=== PATIENT | female | born 1985 | race Two or more races ===

== ENCOUNTER 2018-12-19 10:26 | Emergency (ER) | payer OTHER ==
[~2018-12-19] VITALS: Ht 157.5 cm; Wt 113.4 kg
[2018-12-19] MEDS ORDERED: SYNTHROID75 MCG (10:50)
[2018-12-19] MEDS ORDERED: PRENATABS RX T1 EACH (10:50)
== END 2018-12-19 12:57 | disposition home or self-care (01) ==
LOC: ER 10:26
DX: O98.512 Other viral diseases complicating pregnancy, second trimester (principal); B34.9 Viral infection, unspecified; Z34.02 Encounter for supervision of normal first pregnancy, second trimester

== ENCOUNTER 2019-01-12 21:14 | Inpatient (IN) | payer OTHER ==
[~2019-01-12] VITALS: Ht 157.5 cm; Wt 111.1 kg
[~2019-01-12 21:14] MED LIST: PRENATABS RX T1 EACH; SYNTHROID75 MCG
--- NOTE | 2019-01-12 21:23 | NUR ---
SE RECIBE PTE ALERTA Y ORIENTADA X3, PTE REFIERE VENIR POR TOS CON SECRECIONES, SE AUSCULTA A PTE LA CUAL SE ESCUCHA CON WHEEZING.
--- NOTE | 2019-01-13 08:01 | NUR ---
PTE CON ORDEN DE ADMISION A DELIVERY ROOM DE DR GUERRERO. AL MOMENTO DE REALIZARLE [facility] Y [facility]ISTR[facility] PTE NO SE ENCUENTRA EN LA CAMA. PTE FUE LLEVADA A LISA DE PARTOS, SE LLAMA A MS ALEXANDER Y SE NOTIFICA QUIEN INDICA LE TRABAJARAN LA ADMISION YA QUE PTE SE ENCUENTRA CONECTADA CON LAS CORREAS.
== END 2019-01-19 13:27 | disposition home or self-care (01) | DRG 832 ==
LOC: ER 21:14 → LDR 01-13 07:25 → OB/GYN 01-13 18:52
PROVIDERS: ADMIT Obstetrics & Gynecology
PROC: 4A033R1 Measurement of Arterial Saturation, Peripheral, Percutaneous Approach (ICD-10-PCS; principal; 2019-01-13)
PROC: 3E0F7GC Introduction of Other Therapeutic Substance into Respiratory Tract, Via Natural or Artificial Opening (ICD-10-PCS; 2019-01-13)
PROC: 4A1HXCZ Monitoring of Products of Conception, Cardiac Rate, External Approach (ICD-10-PCS; 2019-01-13)
DX: O26.892 Other specified pregnancy related conditions, second trimester (principal); J45.31 Mild persistent asthma with (acute) exacerbation; Z34.02 Encounter for supervision of normal first pregnancy, second trimester

== ENCOUNTER 2019-02-20 22:21 | Inpatient (IN) | payer OTHER ==
[~2019-02-20] VITALS: Ht 157.5 cm; Wt 116.1 kg
[2019-02-24] MEDS ORDERED: SYNTHROID100 MCG PO (09:30)
== END 2019-02-23 14:05 | DRG 833 ==
LOC: LDR 22:21 → OB/GYN 22:21
PROVIDERS: ADMIT Obstetrics & Gynecology
PROC: 4A1HXFZ Monitoring of Products of Conception, Cardiac Rhythm, External Approach (ICD-10-PCS; principal; 2019-02-20)
PROC: BY4FZZZ Ultrasonography of Third Trimester, Single Fetus (ICD-10-PCS; 2019-02-20)
DX: O40.3XX0 Polyhydramnios, third trimester, not applicable or unspecified (principal); Z34.03 Encounter for supervision of normal first pregnancy, third trimester

== ENCOUNTER 2019-02-24 04:14 | Inpatient (IN) | payer OTHER ==
[~2019-02-24] VITALS: Ht 157.5 cm; Wt 0.9 kg
[2019-02-24] MEDS ORDERED: SYNTHROID100 MCG PO (09:30)
== END 2019-02-28 13:51 | disposition home or self-care (01) | DRG 786 ==
LOC: OB/GYN 04:14 → LDR 04:14 → OB/GYN 02-26 10:51
PROVIDERS: ADMIT Obstetrics & Gynecology
PROC: 4A0HXFZ Measurement of Products of Conception, Cardiac Rhythm, External Approach (ICD-10-PCS; 2019-02-25)
PROC: 10D00Z1 Extraction of Products of Conception, Low, Open Approach (ICD-10-PCS; principal; 2019-02-25 07:00)
DX: O82 Encounter for cesarean delivery without indication (principal); O60.14X0 Preterm labor third trimester with preterm delivery third trimester, not applicable or unspecified; O41.1230 Chorioamnionitis, third trimester, not applicable or unspecified; Z3A.29 29 weeks gestation of pregnancy; Z37.0 Single live birth

== ENCOUNTER 2024-07-13 07:00 | Inpatient (IN) | payer OTHER ==
[~2024-07-13 07:00] MED LIST changes: +SYNTHROID100 MCG PO
[2024-07-13 08:34] LABS: HEMATOCRIT 30.3 % (36.0-45.00); HEMOGLOBIN 9.4 g/dL (12.0-15.00); MEAN CORPUSCULAR HEMOGLOBIN 21.2 pg (27.00-32.0); MEAN CORPUSCULAR HGB CONC 30.9 g/dl (32.0-36.0); PLATELET COUNT 526 K/uL (150-450); RED BLOOD COUNT 4.41 M/uL (4.00-6.00)
[2024-07-13 08:36] LABS: MEAN CELL VOLUME 68.8 fL (80.00-100.00); RED CELL DISTRIBUTION WIDTH 19.2 % (11.5-14.5)
[2024-07-13 08:44] LABS: URINE APPEARANCE Clear; URINE BILIRRUBIN Negative (NEGATIVE); URINE BLOOD Negative; URINE COLOR Yellow; URINE GLUCOSE Negative (NEGATIVE); URINE KETONE Trace (NEGATIVE); URINE LEUKOCYTE Negative; URINE NITRATE Negative; URINE PROTEIN Negative (NEGATIVE); URINE UROBILINOGEN 0.2 E.U./dl
[2024-07-13 08:45] LABS: URINE BACTERIA 391.8 uL (0.0-1933); URINE RBC 7.3 uL (0.0-20.8); URINE WBC 26.8 uL (0.0-23.2)
[2024-07-13 08:58] LABS: INR 1.07; PARTIAL THROMBOPLASTIN TIME 24.9 SECONDS (22.0-34.0); PROTHROMBIN TIME 11.6 SECONDS (9.0-11.5)
[2024-07-13 09:07] LABS: ALBUMIN 3.6 gm/dL (3.4-5.0); BILIRUBIN TOTAL 0.45 mg/dL (0.3-1.2); CALCIUM 9.2 mg/dL (8.5-10.1); CREATININE SERUM 0.65 mg/dL (0.55-1.02); GFR 101.47; GLOBULINA 3.7 G/DL (2.4-3.5); POTASSIUM 4.79 mEq/L (3.5-5.1); TOTAL PROTEIN 7.3 gm/dL (6.4-8.2)
[2024-07-13] MEDS ORDERED: SYNTHROID112 MCG (09:21)
[2024-07-17] MEDS ORDERED: MEGESTROL ACETA40 MG (08:57)
[2024-07-17 10:08] LABS: RH POSITIVE
[2024-07-17] MEDS ORDERED: POVIDONE-IODINE 118 ML BOTT TOP ONE (10:45)
[2024-07-17] MEDS ORDERED: CEFAZOLIN SODIUM 1,000 MG VIAL IV ONE (10:45)
[2024-07-17] MEDS ORDERED: SUGAMMADEX SODIUM 200 MG/2 ML VIAL IV ONE (11:00)
[2024-07-17] MEDS ORDERED: MORPHINE SULFATE 4 MG/ML VIAL IV ONE ×2 (11:30→12:00)
[2024-07-17] MEDS ORDERED: MEPERIDINE HCL/PF 50 MG/ML VIAL IV SCH (12:00)
[2024-07-17 12:46] LABS: MEAN CORPUSCULAR HEMOGLOBIN 20.9 pg (27.00-32.0); MEAN CORPUSCULAR HGB CONC 30.5 g/dl (32.0-36.0); PLATELET COUNT 489 K/uL (150-450); RED CELL DISTRIBUTION WIDTH 19.3 % (11.5-14.5)
[2024-07-17 12:47] LABS: HEMOGLOBIN 8.8 g/dL (12.0-15.00)
[2024-07-17] MEDS ORDERED: PROMETHAZINE HCL 25 MG/ML AMPUL IV SCH (13:00)
[2024-07-17 15:06] VITALS: BP 150/80
[2024-07-17 16:39] LABS: HEMATOCRIT 29.5 % (36.0-45.00); HEMOGLOBIN 9.1 g/dL (12.0-15.00); MEAN CORPUSCULAR HEMOGLOBIN 20.9 pg (27.00-32.0); MEAN CORPUSCULAR HGB CONC 30.8 g/dl (32.0-36.0); PLATELET COUNT 511 K/uL (150-450); RED BLOOD COUNT 4.34 M/uL (4.00-6.00); RED CELL DISTRIBUTION WIDTH 19.1 % (11.5-14.5)
[2024-07-17 17:32] VITALS: BP 142/84
[2024-07-17] MEDS ORDERED: SOD FERRIC GLUC COMPLX/SUCROSE 62.5 MG in 0.9 % SODIUM CHLORIDE 50 ML IV SCH (18:17)
[2024-07-17] MEDS ORDERED: ENALAPRILAT DIHYDRATE 1.25 MG/ML VIAL IV PRN (18:30)
[2024-07-17 22:33] VITALS: BP 129/78
[2024-07-18] VITALS: BP 124/82
[2024-07-18] MEDS ORDERED: IBUprofen 800 MG TABLET PO SCH (02:00)
[2024-07-18] MEDS ORDERED: POLYETHYLENE GLYCOL 3350 17 GM BLIST.PACK PO SCH (05:00)
[2024-07-18] MEDS ORDERED: SIMETHICONE 125 MG CAPSULE PO SCH (05:00)
[2024-07-18] MEDS ORDERED: GABAPENTIN 300 MG CAPSULE PO SCH (05:00)
[2024-07-18 05:12] VITALS: BP 143/84
[2024-07-18] MEDS ORDERED: SYNTHROID BRAND ONLY PO SCH (06:00)
[2024-07-18 08:00] VITALS: BP 123/74
[2024-07-18] MEDS ORDERED: Cyanocobalamin/Mecobalamin 1 TAB.SL SL SCH (09:00)
[2024-07-18 11:04] LABS: HEMATOCRIT 35.4 % (36.0-45.00); HEMOGLOBIN 11.5 g/dL (12.0-15.00); MEAN CORPUSCULAR HEMOGLOBIN 22.6 pg (27.00-32.0); MEAN CORPUSCULAR HGB CONC 32.4 g/dl (32.0-36.0); PLATELET COUNT 491 K/uL (150-450); RED BLOOD COUNT 5.07 M/uL (4.00-6.00); RED CELL DISTRIBUTION WIDTH 19.7 % (11.5-14.5)
[2024-07-18 11:08] LABS: MEAN CELL VOLUME 69.9 fL (80.00-100.00)
[2024-07-18 16:00] VITALS: BP 118/80
[2024-07-19 01:45] VITALS: BP 124/70
[2024-07-19] MEDS ORDERED: PATIENTS OWN MEDICATION (MEDICAMENTO EN PISO) PO SCH (06:00)
[2024-07-19] MEDS ORDERED: GABAPENTIN300 MG PO (07:03)
[2024-07-19] MEDS ORDERED: POLY119PG PO (07:03)
[2024-07-19] MEDS ORDERED: KETOROLAC TROMETHAMINE 60 MG VIAL IM STA (07:03)
[2024-07-19] MEDS ORDERED: IBUPROFEN800 MG PO (07:03)
[2024-07-19] MEDS ORDERED: Neurin-Sl Tablet Sl SL (07:04)
[2024-07-19 08:06] VITALS: BP 116/76
== END 2024-07-19 11:15 | disposition home or self-care (01) | DRG 743 ==
LOC: ADM 07:00 → OB/GYN 07-17 06:11 → O/R 07-17 06:11 → CIR.AMB 07-17 07:00 → EDSTATUS 07-17 07:00 → SURG 07-17 07:00 → OB/GYN 07-17 13:06
PROVIDERS: Internal Medicine Geriatric Medicine; ADMIT Obstetrics & Gynecology; ATTEND Obstetrics & Gynecology
PROC: 0UT70ZZ Resection of Bilateral Fallopian Tubes, Open Approach (ICD-10-PCS; 2024-07-17)
PROC: 30233N1 Transfusion of Nonautologous Red Blood Cells into Peripheral Vein, Percutaneous Approach (ICD-10-PCS; 2024-07-17)
PROC: 0UT90ZZ Resection of Uterus, Open Approach (ICD-10-PCS; principal; 2024-07-17 07:00)
DX: D25.1 Intramural leiomyoma of uterus (principal); D25.2 Subserosal leiomyoma of uterus; Z20.822 Contact with and (suspected) exposure to COVID-19; N80.03 Adenomyosis of the uterus; E66.01 Morbid (severe) obesity due to excess calories; D50.0 Iron deficiency anemia secondary to blood loss (chronic); N93.9 Abnormal uterine and vaginal bleeding, unspecified; R10.2 Pelvic and perineal pain